=== PATIENT | male | born 1960 | race Caucasian/White ===

== ENCOUNTER 2020-09-25 16:30 | Emergency (ER) | payer OTHER ==
[~2020-09-25] VITALS: Ht 175.3 cm; Wt 89.5 kg
[2020-09-25] MEDS ORDERED: methylPREDNISolone 125MG 2ML VIAL IV ONE (19:30)
[2020-09-25] MEDS ORDERED: FAMOTIDINE INJ 20MG/2ML VIAL (S0028 PER 1) IVP ONE (19:30)
[2020-09-25] MEDS ORDERED: NS 1,000 ML IV ONE (19:30)
[2020-09-25] MEDS ORDERED: LISI10TA22 (20:22)
[2020-09-25] MEDS ORDERED: OMEP-221 (20:22)
[2020-09-25 21:24] VITALS: BP 119/68
[2020-09-25] MEDS ORDERED: PRED20TA PO (21:26)
[2020-09-25] MEDS ORDERED: PEPC1TAB5 PO (21:26)
--- NOTE | 2020-09-26 19:49 | ECGEPIP ---
[facility] - ED Test Date: 2020-09-25 Pat Name: MOR MCNALLY Department: Room: - Gender: Male Supervisor Grips: KOLBY : 1960 Requested By: KORI PENA PA-C. Order Number: [id number] Reading MD: Ethel Hollis Measurements Intervals [place] Rate: 72 P: 43 OR: 158 QRS: -6 QRSD: 88 T: 23 QT: 394 QTc: 431 Interpretive Statements Normal sinus rhythm Minimal voltage criteria for LVH, may be normal variant ( R in aVL ) NSTTW abnormalities No prior Electronically Signed on 09-26-2020 19:49:25 EDT by Ethel Hollis
== END 2020-09-25 21:38 | disposition home or self-care (01) ==
LOC: M ED 16:30
DX: L50.9 Urticaria, unspecified (principal); T63.441A Toxic effect of venom of bees, accidental (unintentional), initial encounter; Y92.89 Other specified places as the place of occurrence of the external cause; Z79.899 Other long term (current) drug therapy
CPT/HCPCS: 93005; 96361; 96374; 96375; 99284; J2930